=== PATIENT | female | born 1995 | race Caucasian/White ===

== ENCOUNTER 2018-05-14 11:26 | Inpatient (IN) | payer OTHER ==
[~2018-05-14] VITALS: Ht 162.6 cm; Wt 95.0 kg
[2018-05-17] VITALS (60 sets, daily range): BP systolic 105–151; BP diastolic 52–88; PULSE 58–117; TEMP 97.6–98.6
[2018-05-17] MEDS ORDERED: PERCOCET 325 MG1 TA2 PO (08:39)
[2018-05-17] MEDS ORDERED: MOTRIN 800800 MG/TAB PO (08:39)
[2018-05-17] MEDS ORDERED: PRENATAL (09:13)
[2018-05-17] MEDS ORDERED: BENADRYL25 M2 PO (09:13)
[2018-05-17 09:54] LABS: BASO % 0.3 % (0.0-2.0); EOS # 0.1 (0.0-0.7); EOS % 0.6 % (0-4.0); GRAN # 6.2 (1.4-6.5); GRAN % 65.3 % (42.2-75.2); HEMATOCRIT 39.2 % (37.0-47.0); HEMOGLOBIN 12.8 g/dl (12.5-16.0); LYMPH # 2.1 (1.2-3.4); LYMPH % 21.8 % (20.0-51.0); MEAN CELL VOLUME 96 fl (80.0-100.0); MEAN CORPUSCULAR HEMOGLOBIN 31 pg (27.0-31.0); MEAN CORPUSCULAR HGB CONC 33 g/dl (33.0-37.0); MEAN PLATELET VOLUME 10.6 fl (7.4-10.4); MONO # 1.1 (0.1-0.6); MONO % 11.1 % (1.7-9.3); PLATELET COUNT 219 K/mm3 (130-400); RED BLOOD COUNT 4.09 M/mm3 (4.10-5.30); REDCELL DISTRIBUTION WIDTH-CV 13.2 % (11.5-14.5)
[2018-05-18] VITALS (13 sets, daily range): BP systolic 90–146; BP diastolic 47–76; PULSE 66–109; TEMP 97.6–98.7
[2018-05-19 07:45] VITALS: BP 112/67; PULSE 61; TEMP 97.8
[2018-05-19] MEDS ORDERED: IBU800 M1 PO (11:49)
[2018-05-19] MEDS ORDERED: PERCOCET 325 MG1 TA2 PO (11:49)
== END 2018-05-19 13:15 | disposition home or self-care (01) | DRG 806 ==
LOC: LDR 05-17 07:21 → OB 05-18 02:47
PROVIDERS: Obstetrics & Gynecology
PROC: 10E0XZZ Delivery of Products of Conception, External Approach (ICD-10-PCS; principal; 2018-05-17)
PROC: 0KQM0ZZ Repair Perineum Muscle, Open Approach (ICD-10-PCS; 2018-05-17)
PROC: 10907ZC Drainage of Amniotic Fluid, Therapeutic from Products of Conception, Via Natural or Artificial Opening (ICD-10-PCS; 2018-05-17)
PROC: 3E033VJ Introduction of Other Hormone into Peripheral Vein, Percutaneous Approach (ICD-10-PCS; 2018-05-17)
DX: O75.89 Other specified complications of labor and delivery (principal); Q79.6 Ehlers-Danlos syndromes; Z37.0 Single live birth; Z3A.39 39 weeks gestation of pregnancy; O70.1 Second degree perineal laceration during delivery; Z23 Encounter for immunization
CPT/HCPCS: J1200; J2405; J2590; J2791; J7120